=== PATIENT | male | born 2000 | race Caucasian/White ===

== ENCOUNTER 2023-05-19 13:11 | Emergency (ER) | payer BC, MEDICAID ==
[~2023-05-19] VITALS: Ht 180.3 cm; Wt 131.5 kg
[2023-05-19 13:58] VITALS: BP_SYST 104; PULSE 66; RESP 18; TEMP 98.2; O2SAT 98
[2023-05-19] MEDS ORDERED: HYDR-3927 PO ×2 (14:30→15:04)
[2023-05-19] MEDS ORDERED: IBUP-1971 PO ×2 (14:30→15:04)
[2023-05-19 15:08] VITALS: BP_SYST 135; PULSE 74; RESP 18; TEMP 97.3; O2SAT 97
== END 2023-05-19 15:10 | disposition home or self-care (01) ==
LOC: SED 13:11
DX: S92.422A Displaced fracture of distal phalanx of left great toe, initial encounter for closed fracture (principal); J45.909 Unspecified asthma, uncomplicated; Z79.899 Other long term (current) drug therapy; W19.XXXA Unspecified fall, initial encounter; Y93.89 Activity, other specified; Y92.89 Other specified places as the place of occurrence of the external cause; Y99.8 Other external cause status
CPT/HCPCS: 99283

== ENCOUNTER 2023-06-06 07:41 | Day surgery (SDC) | payer BC ==
[2023-06-02 15:07] LABS: BILIRUBIN,URINE NEGATIVE (NEGATIVE); BLOOD, URINE NEGATIVE (NEGATIVE); CLARITY/URINE Clear (CLEAR); COLOR,URINE YELLOW (YELLOW); GLUCOSE,URINE NEGATIVE (NEGATIVE); NITRITE, URINE NEGATIVE (NEGATIVE); PROTEIN URINE 1+ (NEGATIVE); UROBILINOGEN,URINE 0.2 (0.2-1.0)
[2023-06-02 15:16] LABS: KETONES,URINE NEGATIVE (NEGATIVE); LEUKOCYTE ESTERASE ,URINE NEGATIVE (NEGATIVE)
[2023-06-02 15:17] LABS: BACTERIA,URINE None Seen /HPF (None Seen); BASOPHILS % (AUTO) 0.1 % (0.0-2.0); EOSINOPHILS # (AUTO) 0.2 K/uL (0.0-0.4); EOSINOPHILS % (AUTO) 2.7 % (0.0-4.0); HEMATOCRIT 45.1 % (36-54); LYMPHOCYTES # (AUTO) 2.5 K/uL (1.0-5.5); LYMPHOCYTES % (AUTO) 29.1 % (20.5-51.5); MEAN CORPUSCULAR HEMOGLOBIN 29 pg (27-31); MEAN CORPUSCULAR HGB CONC 33 % (32-36); MEAN CORPUSCULAR VOLUME 88 fL (79.0-98.0); MONOCYTES # (AUTO) 0.6 K/uL (0.0-1.0); MONOCYTES % (AUTO) 6.9 % (1.7-9.3); NEUTROPHILS # (AUTO) 5.2 K/uL (1.8-7.7); NEUTROPHILS % (AUTO) 61.2 % (40.0-70.0); PLATELET COUNT (AUTO) 260 K/uL (130-430); RBC,URINE 0-3 /HPF (0-3); RED BLOOD CELL COUNT(AUTO) 5.15 MIL/uL (4.2-6.2); RED CELL DISTRIBUTION WIDTH 14.2 % (9.0-15.0); WBC,URINE NONE SEEN /HPF (0-3); WHITE BLOOD COUNT (AUTO) 8.5 K/uL (4.8-10.8)
[2023-06-02 15:18] LABS: MUCUS,URINE None Seen /LPF (None Seen)
[~2023-06-06] VITALS: Ht 180.3 cm; Wt 127.0 kg
[~2023-06-06 07:41] MED LIST: HYDR-3927 PO; IBUP-1971 PO
[2023-06-06 08:00] VITALS: O2SAT 98
[2023-06-06] MEDS ORDERED: NS 1000 ML IV.SOLN IV ONE (08:20)
[2023-06-06] MEDS ORDERED: NS IRRIG SOLN 1000 ML IR ONE (08:20)
[2023-06-06] MEDS ORDERED: PROPOFOL 200MG/ 20ML VIAL (DIPRIVAN) IV ONE (08:20)
[2023-06-06] MEDS ORDERED: fentaNYL CITRATE/PF 100 MCG/2 ML AMP ONE (08:20)
[2023-06-06] MEDS ORDERED: ONDANSETRON HCL 4 MG/2 ML VIAL ONE (08:20)
[2023-06-06] MEDS ORDERED: DEXAMETHASONE SOD PHOSPHATE 4 MG/ML VIAL ONE (08:20)
[2023-06-06] MEDS ORDERED: MEPERIDINE HCL/PF 100 MG/ML VIAL ONE (08:20)
[2023-06-06] MEDS ORDERED: SEVOFLURANE 15 MIN GAS INH ONE (08:20)
[2023-06-06] MEDS ORDERED: KETOROLAC TROMETHAMINE 30 MG VIAL IVP PRN (09:00)
[2023-06-06] MEDS ORDERED: MEPERIDINE HCL/PF 25 MG/ML DISP.SYRIN IVP PRN (09:00)
[2023-06-06] MEDS ORDERED: hydrALAZINE HCL 20 MG/ML VIAL IVP PRN (09:00)
[2023-06-06] MEDS ORDERED: ONDANSETRON HCL 4 MG/2 ML VIAL IVP PRN (09:00)
[2023-06-06] MEDS ORDERED: LR 1,000 ML IV SCH (09:00)
[2023-06-06] MEDS ORDERED: HYDROmorphone 1 MG/ML INJ. CARTRIDGE IVP PRN (09:00)
[2023-06-06] MEDS ORDERED: METOCLOPRAMIDE HCL 10 MG/2 ML VIAL IVP PRN (09:00)
[2023-06-06] MEDS ORDERED: TRAM50TA2 PO (09:38)
[2023-06-06 11:48] VITALS: BP_SYST 159; PULSE 72; RESP 20
== END 2023-06-06 11:48 | disposition home or self-care (01) ==
LOC: SDS 07:41 → SMU 07:41 → SDS 11:48
PROVIDERS: ATTEND Orthopaedic Surgery Sports Medicine
DX: S92.422A Displaced fracture of distal phalanx of left great toe, initial encounter for closed fracture (principal); I10 Essential (primary) hypertension; E66.9 Obesity, unspecified; Z68.34 Body mass index [BMI] 34.0-34.9, adult; W19.XXXA Unspecified fall, initial encounter; Y93.89 Activity, other specified; Y92.89 Other specified places as the place of occurrence of the external cause; Y99.8 Other external cause status
CPT/HCPCS: 81000; 85025; 87081; 36415; 28505; 76000; J1100; J2405; J2704; J3010; J2175; J7120; J7030; C1713; C1769 ×2